=== PATIENT | female | born 1970 | race American Indian/Alaskan Native ===

== ENCOUNTER → 2017-01-26 | Emergency (ER) | payer BC, OTHER ==
[~2017-01-26] VITALS: Ht 152.4 cm; Wt 90.7 kg
[~2017-01-26] MED LIST: ACID CONTROL150 MG PO; AMOXICILLIN500 MG PO; CLIMARA1 EAC1 TD; DIPHENHYDRAMINE25 M1 PO; EPIPEN 2-P0.3 MG/0.3 IM; ESTRADIOL1 MG PO; FLOMAX0.4 MG PO; GABAPENTIN300 MG PO; IBUPROFEN400 MG PO; IBUPROFEN600 MG PO; IBUPROFEN800 MG; NAPROXEN500 MG PO; NORCO 10-325 T1 EACH; NORCO 5-325 TA1 EACH PO; PERCOCET 5-3251 EACH PO; PREDNISONE20 MG PO; PROMETHAZINE HC25 M1 PO; PROMETHEGAN50 MG RC; ZITHROMAX250 MG PO; ZOFRAN ODT8 MG PO
--- OUTSIDE RECORDS SUMMARY | ~2017-01-26 | XMS | Encounter Summary ---
Demographics + + + | Address | [address] | | | [place] [address] | + + + | Home Phone | | + + + | Preferred Language | Unknown | + + + | Marital Status | Single | + + + | Taoism Affiliation | Unknown | + + + | Race | or | + + + | Ethnic Group | Other Race | + + + Author + + + | Author | [facility] | + + + | Organization | [facility] | + + + | Address | Unknown | + + + | Phone | Unavailable | + + + Care Team Providers + +------+ + | Care Staffing Account Manager Name | Role | Phone | + +------+ + PCP | Unavailable | + +------+ + Encounter Details +--------+ + + + + | Date | Type | Department | Care Team | Description | +--------+ + + + + | 11/17/ | Hospital | Dermatopathology | | | | 2016 | Encounter | [address] | | | | | | Mail Code: CH16D | | | | | | [facility] | | | | | | and Healing, 5th | | | | | | [place], [place] | | | | | | [address] | | | | | | [phone] | | | +--------+ + + + + Social History + +-------+ +--------+------+ | [...] on file | | + + + as of this encounter Plan of Treatment Not on fileas of this encounter Results DERM PATHOLOGY (11/17/2016) + + + + | Component | Value | Ref Range | + + + + | DERMATOPATHOLOGY(WET | SOURCE OF SPECIMEN:A Rt. lateral neck, | | | MNT) | excision CLINICAL DESCRIPTION:R/o | | | | atypical junctional melanocytic | | | | proliferation possible for melanoma | | | | insitu?; [id number]. GROSS | | | | DESCRIPTION:Received in formalin is a | | | | specimen labeled Amie Serna:A: | | | | Specimen is labeled "Rt lateral neck" and | | | | consists of an ellipticalexcision of | | | | christian-brown skin, [id number]. The surgical | | | | margin is inked blue;the tissue is serially | | | | sectioned, and entirely submitted in | | | | cassettes A1 | | | | | | | | A3. MICROSCOPIC DESCRIPTION:There | | | | is horizontally arranged fibrosis extending | | | | throughout much of thecentral dermis. | | | | Adjacent to this in many areas, there is | | | | mild papillatedepidermal hyperplasia, with | | | | vacuolar alteration of the basal layer, and | | | | afocally band-like lymphocytic infiltrate | | | | in the upper dermis where thereare numerous | | | | melanophages and mild papillary fibrosis. | | | | Single melanocytesappear to be spaced | | | | relatively sparsely along the epidermal | | | | basal layer, insome areas with a mild | | | | increase (as seen with Melan-A and | | | | SOX-10). 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 NOTE: In this | | | | re-excisional specimen, there is no | | | | evidence of melanoma insitu or a | | | | melanocytic neoplasm, where foci of | | | | lichenoid/interface changeand numerous | | | | melanophages suggest a partially resolved | | | | lichenoiddermatosis, such as ERYTHEMA | | | | DYSCHROMICUM PERSTANS (ASHY DERMATOSIS) | | | | orLICHEN PLANUS PIGMENTOSIS, among other | | | | possibilities. It is difficult toentirely | | | | exclude a broad, inflamed solar lentigo, | | | | which is less likely,although clinical | | | | correlation is recommended.KPW: | | | | dm11/23/16 My electronic signature | | | | indicates that I have personally reviewed | | | | alldiagnostic slides, the gross and/or | | | | microscopic portion of thisreport and | | | | formulated the final diagnosis. | | | | Rendering Diagnostician: Nael Sarkar | | | | YehudaPathologistElectronically Signed | | | | 11/23/2016 5:02PM | | + + + + + + + | Specimen | Performing Laboratory | + + + | | [facility] Mailcode CH5D [address] [facility] | | | [place] [address] | + + + in this encounter Visit Diagnoses + + | Diagnosis | + + | Scar conditions and fibrosis of skin | + + | Scar condition and fibrosis of skin | + + | Other specified dermatitis | + + Admitting Diagnoses + + | Diagnosis | + + | Neoplasm of uncertain behavior of skin | + +
--- OUTSIDE RECORDS SUMMARY | ~2017-01-26 | XMS | Encounter Summary ---
Demographics + + + | Address | [address] | | | [place] [address] | + + + | Home Phone | | + + + | Preferred Language | Unknown | + + + | Marital Status | Single | + + + | Gnosticist Affiliation | Unknown | + + + | Race | or | + + + | Ethnic Group | Other Race | + + + Author + + + | Author | [facility] | + + + | Organization | [facility] | + + + | Address | Unknown | + + + | Phone | Unavailable | + + + Care Team Providers + +------+ + | Care Wire Temperer Name | Role | Phone | + [...] CH16D | | | | | | [facility] | | | | | | and Healing, [address]th | | | | | | [place], [place] | | | | | | [address] | | | | | | [phone] | | | +--------+ + + + [...] for melanoma | | | | insitu?; [id number]. GROSS | | | | DESCRIPTION:Received in formalin is a | | | | specimen labeled Amie Serna:A: | | | | Specimen is labeled "Rt lateral neck" and | | | | consists of an ellipticalexcision of | | | | christian-brown skin, [id number]. The surgical | | | | margin [...] | | [facility] Mailcode CH5D [address] [facility] | | | [place] [address] | + + + in this encounter [...]
--- OUTSIDE RECORDS SUMMARY | ~2017-01-26 | XMS | Clinical Summary ---
Demographics + + + | Address | [address] | | | [place] [address] | + + + | Home Phone | | + + + | Preferred Language | Unknown | + + + | Marital Status | Single | + + + | Latter-Day Affiliation | Unknown | + + + | Race | or | + + + | Ethnic Group | Other Race | + + + Author + + + | Author | [facility]atology [facility] | + + + | Organization | [facility] | + + + | Address | Unknown | + + + | Phone | Unavailable | + + + Care Team Providers + +------+ + | Care Farm General Manager Name | Role | Phone | + +------+ + PP | Unavailable | + +------+ + Source Comments [facility] is fully live on both [facility] and [facility] InPatient.[facility] Allergies Not on File Current Medications Not on file Active Problems Not on file Encounters +--------+ + + + + | Date | Type | Specialty | Care Team | Description | +--------+ + + + + | 11/17/ | Hospital | | | | | 2017 | Encounter | | | | +--------+ + + + + from Last 3 Months Social History + +-------+ +--------+------+ | Tobacco [...] | + + + + + Results DERM PATHOLOGY (11/17/2016) + + + + | Component | Value | Ref Range | + + + + | DERMATOPATHOLOGY(WET | SOURCE OF SPECIMEN:A Rt. lateral neck, | | | MNT) | excision CLINICAL DESCRIPTION:R/o | | | | atypical junctional melanocytic | | | | proliferation possible for melanoma | | | | insitu?; [id number]. GROSS | | | | DESCRIPTION:Received in formalin is a | | | | specimen labeled Amie Serna:A: | | | | Specimen is labeled "Rt lateral neck" and | | | | consists of an ellipticalexcision of | | | | christian-brown skin, [id number]. The surgical | | | | margin [...] Laboratory | + + + | | [facility] [place] CH5D [address] [facility] | | | [place] [address] | + + + from Last 3 Months
== END ==
LOC: ED 21:25
DX: J06.9 Acute upper respiratory infection, unspecified (principal); Z90.710 Acquired absence of both cervix and uterus; Z88.6 Allergy status to analgesic agent; Z88.8 Allergy status to other drugs, medicaments and biological substances; Z79.899 Other long term (current) drug therapy
CPT/HCPCS: 99283

== ENCOUNTER 2017-04-03 09:20 | Emergency (ER) | payer BC, OTHER ==
[~2017-04-03] VITALS: Ht 144.8 cm; Wt 90.7 kg
--- OUTSIDE RECORDS SUMMARY | ~2017-04-03 | XMS | Clinical Summary ---
Demographics + + + | Address | [address] | | | [place] [address] | + + + | Home Phone | | + + + | Preferred Language | Unknown | + + + | Marital Status | Single | + + + | Faith Affiliation | Unknown | + + + | Race | or | + + + | Ethnic Group | Other Race | + + + Author + + + | Author | [facility] | + + + | Organization | [facility] | + + + | Address | Unknown | + + + | Phone | Unavailable | + + + Care Team Providers + +------+ + | Care Ring Packer Name | Role | Phone | + +------+ + PP | Unavailable | + +------+ + Source Comments [facility] is fully live on both [facility] Ambulatory and [facility] InPatient.[facility] Allergies Not on File Current Medications Not [...] | | | | (FLU SHOT) | 7 | | | + + + + + Results Not on filefrom Last 3 Months"
--- OUTSIDE RECORDS SUMMARY | ~2017-04-03 | XMS | Clinical Summary ---
Demographics + + + | Address | [address] | | | [place] [address] | + + + | Home Phone | | + + + | Preferred Language | Unknown | + + + | Marital Status | Single | + + + | Islam Affiliation | Unknown | + + + | Race | or | + + + | Ethnic Group | Other Race | + + + Author + + + | Author | [facility] Dermatology [facility] | + + + | Organization | [facility] Dermatology [facility] | + + + | Address | Unknown | + + + | Phone | Unavailable | + + + Care Team Providers + +------+ + | Care Chief Growth Officer Name | Role | Phone | + +------+ + PP | Unavailable | + +------+ + Source Comments [facility] is fully live on both [facility] Amb[facility] and [facility] InPatient.[facility] Allergies Not on File Current Medications [...]
[2017-04-03] MEDS ORDERED: ZITHROMAX250 MG PO (09:47)
[2017-04-03] MEDS ORDERED: TESSALON PERLE100 MG PO (09:47)
== END 2017-04-03 10:35 | disposition home or self-care (01) ==
LOC: ED 09:20
DX: G43.909 Migraine, unspecified, not intractable, without status migrainosus (principal); J06.9 Acute upper respiratory infection, unspecified; Z88.8 Allergy status to other drugs, medicaments and biological substances; Z88.5 Allergy status to narcotic agent
CPT/HCPCS: 96374; 96375; 99283; J1200; J1885; J2765

== ENCOUNTER 2017-06-21 13:54 | Emergency (ER) | payer BC, OTHER ==
[~2017-06-21] VITALS: Ht 144.8 cm; Wt 90.7 kg
[~2017-06-21 13:54] MED LIST changes: +TESSALON PERLE100 MG PO
--- OUTSIDE RECORDS SUMMARY | 2017-06-21 17:15 | XMS | Clinical Summary ---
Demographics + + + | Address | [address] | | | [place] [address] | + + + | Home Phone | | + + + | Preferred Language | Unknown | + + + | Marital Status | Single | + + + | Episcopal Affiliation | Unknown | + + + | Race | Unknown | + + + | Ethnic Group | Unknown | + + + Author + + + | Author | [facility] | + + + | Organization | [facility] | + + + | Address | Unknown | + + + | Phone | Unavailable | + + + Support + + + + + | Name | Relationship | Address | Phone | + + + + + | [address] | [address] | [place] | | | | | [address] | | + + + + + Care Team Providers + +------+ + | Care Bridal Stylist Sales Consultant Name | Role | Phone | + +------+ + | Sebas Louis MD | PP | | + +------+ + Allergies Not on File Current Medications Not on file Active Problems Not on file Social History + +-------+ +--------+------+ | Tobacco Use | Types | Packs/Day | Years | Date | | | | | Used | | + +-------+ +--------+------+ | Never Assessed | | | | | + +-------+ +--------+------+ + + + | Sex Assigned at | Date Recorded | | | | + + + | Not on file | | + + + Last Filed Vital Signs + + + + | Vital Sign | Reading | Time Taken | + + + + | Blood Pressure | 146/84 | 08/20/2014 3:20 PM PDT | + + + + | Pulse | 66 | 08/20/2014 3:20 PM PDT | + + + + | Temperature | - | - | + + + + | Respiratory Rate | 15 | 08/20/2014 3:20 PM PDT | + + + + | Oxygen Saturation | - | - | + + + + | Inhaled Oxygen | - | - | | Concentration | | | + + + + | Weight | 93.3 kg (205 lb 9.6 | 08/20/2014 3:20 PM PDT | | | oz) | | + + + + | Height | 152.4 cm (5') | 08/20/2014 3:20 PM PDT | + + + + | Body Mass Index | 40.15 | 08/20/2014 3:20 PM PDT | + + + + Plan of Treatment Not on file Results Not on filefrom Last 3 Months Insurance + +--------+ +------+-------+---------+ | Payer | Benefi | Subscriber | Type | Phone | Address | | | t Plan | ID | | | | | | / | | | | | | | Group | | | | | + +--------+ +------+-------+---------+ | COMMERCIAL OTHER | COMMER | xxxxxxxxxxx | | | | | | CIAL | [id number] | | | | | | GENERI | | | | | | | C PLAN | | | | | + +--------+ +------+-------+---------+ | /[employer] | YELLOW | xxxxxxxxx | | | | | PLANS | [place] | | | | | + +--------+ +------+-------+---------+ + +--------+ +--------+ + + | Guarantor Name | Accoun | Relation to | Date | Phone | Billing Address | | | t Type | Patient | of | | | | | | | | | | + +--------+ +--------+ + + | AMIE SERNA | Person | Self [birth year] | Home: | [address] [place] [address] | | | al/[place] | | 1971 | [phone] | [place] | | | [place] | | | [phone] | [phone] | + +--------+ +--------+ + +"
--- OUTSIDE RECORDS SUMMARY | 2017-06-21 17:15 | XMS | Clinical Summary ---
Demographics + + + | Address | [address] | | | [place] [address] | + + + | Home Phone | | + + + | Preferred Language | Unknown | + + + | Marital Status | Single | + + + | Oriental Orthodox Affiliation | Unknown | + + + | Race | or | + + + | Ethnic Group | Other Race | + + + Author + + + | Author | [facility] Dermatology [facility] | + + + | Organization | [facility] | + + + | Address | Unknown | + + + | Phone | Unavailable | + + + Care Team Providers + +------+ + | Care Filling Room Operator Name | Role | Phone | + +------+ + PP | Unavailable | + +------+ + Source Comments [facility] is fully live on both [facility] Ambulatory and [facility] InPatient.[facility] Allergies Not on File Current Medications Not [...] on file | | + + + Plan of Treatment + + + + + | Health Maintenance | Due Date | Last Done | Comments | + + + + + | INFLUENZA VACCINE | | | | | (FLU SHOT) | 8 | | | + + + + + Results Not on filefrom Last 3 Months"
--- OUTSIDE RECORDS SUMMARY | 2017-06-21 17:15 | XMS | Clinical Summary ---
Demographics + + + | Address | [address] | | | [place] [address] | + + + | Home Phone | | + + + | Preferred Language | Unknown | + + + | Marital Status | Unknown | + + + | Sabianism Affiliation | Unknown | + + + | Race | Unknown | + + + | Ethnic Group | Unknown | + + + Author + + + | Author | [facility] | | | and [place] | + + + | Organization | [facility] | | | and [place] | + + + | Address | Unknown | + + + | Phone | Unavailable | + + + Support + + +---------+ + | Name | Relationship | Address | Phone | + + +---------+ + | Boo Christie | ECON | Unknown | | + + +---------+ + Care Team Providers + +------+ + | Care Press Tender Short Goods Name | Role | Phone | + +------+ + PP | Unavailable | + +------+ + Allergies + + + + + + | Active Allergy | Reactions | Severity | Noted | Comments | | | | | Date | | + + + + + + | Tramadol | | | 12/27/19 | | | | | | 12 | | + + + + + + Current Medications + + +-------+---------+------+------+-------+ | Prescription | Sig. | Disp. | Refills | Star | End | Statu | | | | | | t | Date | s | | | | | | Date | | | + + +-------+---------+------+------+-------+ | rizatriptan | Take 5 mg by mouth | | | | | Activ | | (MAXALT) 5 MG tablet | as needed. May | | | | | e | | | repeat in 2 hours if | | | | | | | | needed | | | | | | + + +-------+---------+------+------+-------+ | pyridoxine (B-6) | Take 25 mg by mouth | | | | | Activ | | 25 MG tablet | Daily. | | | | | e | + + +-------+---------+------+------+-------+ | cholecalciferol | Take 1,000 Units by | | | | | Activ | | (VITAMIN D-3) 1,000 | mouth Daily. | | | | | e | | units tablet | | | | | | | + + +-------+---------+------+------+-------+ | folic acid 1 mg | Take 1 mg by mouth | | | | | Activ | | tablet | Daily. | | | | | e | + + +-------+---------+------+------+-------+ | clarithromycin | Take 250 mg by mouth | | | | | Activ | | (BIAXIN) 250 mg | 2 times daily. | | | | | e | | tablet | | | | | | | + + +-------+---------+------+------+-------+ Active Problems Not on file Family History + + +------+ + | Medical History | Relation | Name | Comments | + + +------+ + | High blood pressure | Father | | | + + +------+ + | Diabetes | Mother | | | + + +------+ + | High blood pressure | Mother | | | + + +------+ + | Diabetes | Sister | | | + + +------+ + | High blood pressure | Sister | | | + + +------+ + + +------+--------+ + | Relation | Name | Status | Comments | + +------+--------+ + | Father | | Alive | | + +------+--------+ + | Mother | | Alive | | + +------+--------+ + | Sister | | Alive | | + +------+--------+ + Social History + +-------+ +--------+------+ | Tobacco Use | Types | Packs/Day | Years | Date | | | | | Used | | + +-------+ +--------+------+ | Never Smoker | | | | | + +-------+ +--------+------+ + +---+---+---+ | Smokeless Tobacco: | | | | | Never Used | | | | + +---+---+---+ + + +---------+ + | Alcohol Use | Drinks/We | oz/Week | Comments | | | ek | | | + + +---------+ + | Yes | | | Once a year | + + +---------+ + + + + | Sex Assigned at | Date Recorded | | | | + + + | Not on file | | + + + Last Filed Vital Signs + + + + | Vital Sign | Reading | Time Taken | + + + + | Blood Pressure | 120/80 | 12/27/2011839 PDT | + + + + | Pulse | 76 | 12/27/2011839 PDT | + + + + | Temperature | - | - | + + + + | Respiratory Rate | 16 | 12/27/2011839 PDT | + + + + | Oxygen Saturation | - | - | + + + + | Inhaled Oxygen | - | - | | Concentration | | | + + + + | Weight | 91.7 kg (202 lb 3.2 | 12/27/2011839 PDT | | | oz) | | + + + + | Height | 152.4 cm (5') | 12/27/2011839 PDT | + + + + | Body Mass Index | 39.49 | 12/27/2011839 PDT | + + + + Plan of Treatment + + + + + | Health Maintenance | Due Date | Last Done | Comments | + + + + + | Vaccine: | | | | | Dtap/Tdap/Td (1 - | 8 | | | | Tdap) | | | | + + + + + | CERVICAL CANCER | | | | | SCREENING (PAP EVERY | 0 | | | | 3 YEARS 21-64 ) | | | | + + + + + | Vaccine: Influenza | | | | | (Season Ended) | 8 | | | + + + + + Results Not on filefrom Last 3 Months Insurance + +--------+ +--------+-------+---------+ | Payer | Benefi | Subscriber | Type | Phone | Address | | | t Plan | ID | | | | | | / | | | | | | | Group | | | | | + +--------+ +--------+-------+---------+ | [employer] | [employer] | xxxxxxxxx | Indemn | | | | SERVICE | YELLOW | | ity | | | | | [place] | | | | | + +--------+ +--------+-------+---------+ + +--------+ +--------+ + + | Guarantor Name | Accoun | Relation to | Date | Phone | Billing Address | | | t Type | Patient | of | | | | | | | | | | + +--------+ +--------+ + + | AMIE SERNA | Person | Self | [birth year] | Home: | [address] | | | al/Fam | | 1971 | [phone] | [place] [address] | | | on[place] | | | [phone] | | + +--------+ +--------+ + +"
--- OUTSIDE RECORDS SUMMARY | 2017-06-21 17:15 | XMS | Clinical Summary ---
Demographics + + + | Address | [address] | | | [place] [address] | + + + | Home Phone | | + + + | Preferred Language | Unknown | + + + | Marital Status | Single | + + + | Cheondoism Affiliation | Unknown | + + + | Race | Unknown | + + + | Ethnic Group | Unknown | + + + Author + + + | Author | [facility] | + + + | Organization | [facility] | + + + | Address | Unknown | + + + | Phone | Unavailable | + + + Support + + + + + | Name | Relationship | Address | Phone | + + + + + | [address] | [address] | [place] | | | | | [address] | | + + + + + Care Team Providers + +------+ + | Care Aluminum Pourer Name | Role | Phone | + [...] | | | + +--------+ +------+-------+---------+ | /[facility] | YELLOW | xxxxxxxxx | | [...] | Self | [birth year] | Home: | [address] [place] [address] | | | al/[place] | | 1971 | [phone] | [place] | | | [place] | | | [phone] | [phone] | + +--------+ +--------+ + +"
--- OUTSIDE RECORDS SUMMARY | 2017-06-21 17:15 | XMS | Clinical Summary ---
Demographics + + + | Address | [address] | | | [place] [address] | + + + | Home Phone | | + + + | Preferred Language | Unknown | + + + | Marital Status | Unknown | + + + | Moravian Affiliation | Unknown | + + + | Race | Unknown | + + + | Ethnic Group | Unknown | + + + Author + + + | Author | [facility] | | | and [place] | + + + | Organization | [facility] | | | and [...] Team Providers + +------+ + | Care Retail Wireless Associate Name | Role | Phone | + [...] | | | + +--------+ +--------+-------+---------+ | [facility] | [employer]HS | xxxxxxxxx | Indemn [...] Self | [birth year] | Home: | [address] | | | al/Fam | | 1971 | [phone] | [place] [address] | | | oniel | | | [phone] | | + +--------+ +--------+ + +"
--- OUTSIDE RECORDS SUMMARY | 2017-06-21 17:15 | XMS | Clinical Summary ---
Demographics + + + | Address | [address] | | | [place] [address] | + + + | Home Phone | | + + + | Preferred Language | Unknown | + + + | Marital Status | Single | + + + | Mandaeism Affiliation | Unknown | + + + | Race | or | + + + | Ethnic Group | Other Race | + + + Author + + + | Author | [facility]atology [facility] | + + + | Organization | [facility] | + + + | Address | Unknown | + + + | Phone | Unavailable | + + + Care Team Providers + +------+ + | Care Socket Puller Name | Role | Phone | + +------+ + PP | Unavailable | + +------+ + Source Comments [facility] is fully live on both [facility] Ambulatory and [facility] InPatient.[facility] Allergies Not on File Current Medications Not [...]
[2017-06-21] MEDS ORDERED: NORCO 10-325 T1 EACH PO (17:27)
[2017-06-21] MEDS ORDERED: ONDANSETRON ODT8 MG PO (17:27)
== END 2017-06-21 17:46 | disposition home or self-care (01) ==
LOC: ED 13:54
DX: N13.2 Hydronephrosis with renal and ureteral calculous obstruction (principal); Z88.5 Allergy status to narcotic agent; Z88.8 Allergy status to other drugs, medicaments and biological substances
CPT/HCPCS: 74176; 80053; 81001; 82150; 83690; 85025; 96361; 96374; 96375; 96376; 99284; J1170; J1885; J2405; J7030

== ENCOUNTER 2018-07-02 18:15 | Emergency (ER) | payer BC, OTHER ==
[~2018-07-02] VITALS: Ht 144.8 cm; Wt 98.9 kg
--- OUTSIDE RECORDS SUMMARY | ~2018-07-02 | XMS | Clinical Summary ---
Demographics + + + | Address | [address] | | | [place] [address] | + + + | Home Phone | | + + + | Preferred Language | Unknown | + + + | Marital Status | Unknown | + + + | Druze Affiliation | Unknown | + + + | Race | Unknown | + + + | Ethnic Group | Unknown | + + + Author + + + | Author | [facility] | | | and [place] | + + + | Organization | [facility] | | | and [place] | + + + | Address | Unknown | + + + | Phone | Unavailable | + + + Support + + +---------+ + | Name | Relationship | Address | Phone | + + +---------+ + | Boo Christie | ECON | Unknown | | + + +---------+ + Care Team Providers + +------+ + | Care Internet Webmaster Name | Role | Phone | + +------+ + | Sebas Louis DO | PP | | + +------+ + Allergies + + + + + + | Active Allergy | Reactions | Severity | Noted | Comments | | | | | Date | | + + + + + + | Amitriptyline | Other (See Comments) | | 10/04/19 | Reaction not | | | | | 18 | specified in outside | | | | | | medical records | + + + + + + | Diclofenac | Other (See Comments) | | 10/04/19 | Reaction not | | | | | 18 | specified in outside | | | | | | medical records | | | | | | | + + + + + + | Sumatriptan | Other (See Comments) | | 10/04/19 | Reaction not | | | | | 18 | specified in outside | | | | | | medical records | + + + + + + | Prednisone | Other (See Comments) | | 10/04/19 | Reaction not | | | | | 18 | specified in outside | | | | | | medical records | + + + + + + | Propranolol | Other (See Comments) | | 10/04/19 | Reaction not | | | | | 18 | specified in outside | | | | | | medical records | + + + + + + | Tramadol | Other (See Comments) | | 12/27/19 | Reaction not | | | | | 12 | specified in outside | | | | | | medical records | + + + + + + Medications + + + +---------+------+------+-------+ | Medication | Sig | Dispensed | Refills | Star | End | Statu | | | | | | t | Date | s | | | | | | Date | | | + + + +---------+------+------+-------+ | acetaminophen | Take 325-650 mg by | | 0 | | | Activ | | (TYLENOL) 325 mg | mouth EVERY 4 TO 6 | | | | | e | | tablet | HOURS NEEDED for | | | | | | | | Pain or Fever. | | | | | | + + + +---------+------+------+-------+ | ibuprofen | Take 800 mg by mouth | | 0 | | | Activ | | (ADVIL,MOTRIN) 800 | every 8 hours as | | | | | e | | MG tablet | needed for Pain. | | | | | | | | With meals | | | | | | + + + +---------+------+------+-------+ Active Problems No known active problems Encounters +--------+ + + + + | Date | Type | Specialty | Care Team | Description | +--------+ + + + + | 06/01/ | Imaging | | Provider, | | | 2019 | Exam | | MD Yaw | | +--------+ + + + + from Last 3 Months Family History + + + + + | Medical History | Relation | Name | Comments | + + + + + | High blood pressure | Father | TIM | | | | | D | | | | | [place]ALAKEE | | + + + + + | Diabetes | Mother | CASTRO | | | | | ALEXANDE | | | | | R | | + + + + + | High blood pressure | Mother | CASTRO | | | | | ALEXANDE | | | | | R | | + + + + + | Diabetes | Sister | | | + + + + + | High blood pressure | Sister | | | + + + + + + + +--------+ + | Relation | Name | Status | Comments | + + +--------+ + | Father | TIM D | Alive | | | | [place]EE | | | + + +--------+ + | Mother | CASTRO | Alive | | | | MADDIE | | | + + +--------+ + | Sister | | Alive | | + + +--------+ + Social History + +-------+ +--------+------+ | [...] on file | | + + + + + + + | Job Start Date | Occupation | Industry | + + + + | Not on file | Not on file | Not on file | + + + + + + + + | Travel History | Travel Start | Travel End | + + + + + + | No recent travel history available. | + + Last Filed Vital Signs + + + + | Vital Sign | Reading | Time Taken | + + + + | Blood Pressure | 124/63 | 10/26/20171552 PDT | + + + + | Pulse | 77 | 10/26/20173 PDT | + + + + | Temperature | - | - | + + + + | Respiratory Rate | 20 | 10/26/20171552 PDT | + + + + | Oxygen Saturation | - | - | + + + + | Inhaled Oxygen | - | - | | Concentration | | | + + + + | Weight | 93 kg (205 lb) | 10/11/20171609 PDT | + + + + | Height | 152.4 cm (5') | 10/11/20171609 PDT | + + + + | Body Mass Index | 40.04 | 10/11/20171609 PDT | + + + + Plan of Treatment + + + + + | Health Maintenance | Due Date | Last Done | Comments | + + + + + | Cervical Cancer | | | | | Screening (Pap) | 9 | | | + + + + + | Vaccine: Influenza | | 2009, 11/27/2008 | | | (Season Ended) | 9 | | | + + + + + | Vaccine: | | 07/28/2011, 12/18/2009 | | | Dtap/Tdap/Td (3 - | 2 | | | | Td) | | | | + + + + + Procedures + +--------+ + + + | Procedure Name | Priori | Date/Time | Associated Diagnosis | Comments | | | ty | | | | + +--------+ + + + | US BREAST LIMITED | Routin | 06/01/2018 | | Results for this | | LEFT | e | 11:40 PDT | | procedure are in the | | | | | | results section. | + +--------+ + + + from Last 3 Months Results US Breast Limited Left (06/01/2018 11:40 PDT) + + | Specimen | + + | | + + + + + | Narrative | Performed At | + + + | External films for comparison only | [facility] | | | | | No results will be in the chart. | | + + + + +---------+ + + | Performing | Address | City/State/Zipcode | Phone Number | | Organization | | | | + +---------+ + + | [facility] | | | | + +---------+ + + from Last 3 Months Insurance + +--------+ +--------+-------+---------+--------+ | Payer | Benefi | Subscriber | Effect | Phone | Address | Type | | | t Plan | ID | jeb | | | | | | / | | Dates | | | | | | Group | | | | | | + +--------+ +--------+-------+---------+--------+ | BCBS | BCBS | [id number] | 02/28/19 | | | PPO | | | [place] | | 17-Pre | | | | | | L FEP | | sent | | | | + +--------+ +--------+-------+---------+--------+ | [facility] | IHS | [id number] | 12/19/ | | | Indemn | | SERVICE | YELLOW | | 2012-P | | | ity | | | HAWK | | resent | | | | + +--------+ +--------+-------+---------+--------+ + +--------+ +--------+ + + | Guarantor Name | Accoun | Relation to | Date | Phone | Billing Address | | | t Type | Patient | of | | | | | | | | | | + +--------+ +--------+ + + | Amie Serna | Person | Self | [birth year] | [address] | | [place] | al/[place] | | 1971 | [phone] | [place] [address] | | | oniel | | | 1 (Home) | | + +--------+ +--------+ + + Advance Directives Patient has advance care planning documents on file. For more information, please contact:[facility] [place] [address]"
--- OUTSIDE RECORDS SUMMARY | ~2018-07-02 | XMS | Clinical Summary ---
Demographics + + + | Address | [address] | | | [place] [address] | + + + | Home Phone | | + + + | Preferred Language | Unknown | + + + | Marital Status | Single | + + + | Moravian Affiliation | Unknown | + + + | Race | Unknown | + + + | Ethnic Group | Unknown | + + + Author + + + | Author | [facility] | + + + | Organization | [facility] | + + + | Address | Unknown | + + + | Phone | Unavailable | + + + Support + + + + + | Name | Relationship | Address | Phone | + + + + + | Boo Hall | [address] | [place] | | | | | [address] | | + + + + + Care Team Providers + +------+ + | Care Fighting Vehicle Infantryman Name | Role | Phone | + [...] +------+-------+---------+ | COMMERCIAL OTHER | COMMER | [id number] | | | | | | CIAL | [id number] | | | | | | GENERI | | | | | | | C PLAN | | | | | + +--------+ +------+-------+---------+ | /[facility] | YELLOW | [id number] | | | | | PLANS | [...] | Self | [birth year] | Home: | [address] [place] [address] | | | al/[place] | | 1971 | [phone] | [place] | | | oniel | | | [phone] | [phone] | + +--------+ +--------+ + +"
--- OUTSIDE RECORDS SUMMARY | ~2018-07-02 | XMS | Clinical Summary ---
Demographics + + + | Address | [address] | | | [place] [address] | + + + | Home Phone | | + + + | Preferred Language | Unknown | + + + | Marital Status | Single | + + + | Gnosticism Affiliation | Unknown | + + + | Race | or | + + + | Ethnic Group | Other Race | + + + Author + + + | Author | [facility] | + + + | Organization | [facility] | + + + | Address | Unknown | + + + | Phone | Unavailable | + + + Care Team Providers + +------+ + | Care Real Estate Clerk Name | Role | Phone | + +------+ + PP | Unavailable | + +------+ + Source Comments [facility] is fully live on both [facility] and [facility] InPatient.[facility] Allergies Not on File Current Medications Not [...] | + + + + + | Influenza (Flu) | | | | | vaccination (#1) | 8 | | | + + + + + Results Not on filefrom Last 3 Months Insurance + +--------+ +--------+ + + | Payer | Benefi | Subscriber | Type | Phone | Address | | | t Plan | ID | | | | | | / | | | | | | | Group | | | | | + +--------+ +--------+ + + | [employer] [place] | BLUE | [phone] | PPO | [phone] | [address] [phone] [place] | | | CROSS | | | [phone] | [place] [address] | | | FEDERA | | | | | | | L | | | | | + +--------+ +--------+ + + | [facility] | [place] | [phone] | Agency | | | | SERVICE | | | | | | | | HEALTH | | | | | | | | | | | | | | SERVIC | | | | | | | E | | | | | + +--------+ +--------+ + + + +--------+ +--------+ + + | Guarantor Name | Accoun | Relation to | Date | Phone | Billing Address | | | t Type | Patient | of | | | | | | | | | | + +--------+ +--------+ + + | AMIE SERNA | Person | Self | [birth year] | Home: | [address] | | | al/Fam | | 1971 | [phone] | [place] [address] | | | oniel | | | [phone] | | + +--------+ +--------+ + +"
--- OUTSIDE RECORDS SUMMARY | ~2018-07-02 | XMS | Encounter Summary ---
Demographics + + + | Address | [address] | | | [place] [address] | + + + | Home Phone | | + + + | Preferred Language | Unknown | + + + | Marital Status | Unknown | + + + | Bahai Affiliation | Unknown | + + + | Race | Unknown | + + + | Ethnic Group | Unknown | + + + Author + + + | Author | [facility] | | | and [place] | + + + | Organization | [facility] | | | and [place] | [...] Team Providers + +------+ + | Care Solar Designer Name | Role | Phone | + +------+ + | Sebas Louis DO | PCP | | + +------+ + Encounter Details +--------+ + + + + | Date | Type | Department | Care Team | Description | +--------+ + + + + | 06/01/ | Imaging | [facility] | Lidia, | | | 2019 | Exam | [facility] | MD [address] | | | | | IMAGING | [address] | | | | | [phone] | [place] [address] | | +--------+ + + + + [...] recent travel history available. | + + documented as of this encounter Plan of Treatment Not on filedocumented as of this encounter Procedures + +--------+ + + + | [...] section. | + +--------+ + + + documented in this encounter Results US Breast Limited Left (06/01/2018 11:40 [...] | | | + +---------+ + + documented in this encounter Visit Diagnoses Not on filedocumented in this encounter"
--- OUTSIDE RECORDS SUMMARY | ~2018-07-02 | XMS | Clinical Summary ---
Demographics + + + | Address | [address] | | | [place] [address] | + + + | Home Phone [...] Author + + + | Author | [facility] | + + + | Organization | [facility] | + + + | Address | Unknown | + + + | Phone | Unavailable | + + + Care Team Providers + +------+ + | Care Gang Investigator Name | Role | Phone | + +------+ + PP | Unavailable | + +------+ + Source Comments [facility] is fully live on both [facility] and [facility].On License Of [facility] Allergies Not on File Current Medications Not [...] | BLUE | [phone] | PPO | [phone] | [address] [phone] [place] | | | CROSS | | | [phone] | [place] [address] | | | FEDERA | | | | | | | L | | | | | + +--------+ +--------+ + + | [facility] | [facility] | [phone] | Agency | | [...] Self | [birth year] | Home: | [address] | | | al/Fam | | 1971 | [phone] | [place] [address] | | | oniel | | | [phone] | | + +--------+ +--------+ + +"
--- OUTSIDE RECORDS SUMMARY | ~2018-07-02 | XMS | Encounter Summary ---
Demographics + + + | Address | [address] | | | [place] [address] | + + + | Home Phone | | + + + | Preferred Language | Unknown | + + + | Marital Status | Unknown | + + + | Mormon Affiliation | Unknown | + + + | Race | Unknown | + + + | Ethnic Group | Unknown | + + + Author + + + | Author | [facility] | | | and [place] | + + + | Organization | [facility] | | | and [place] | [...] Team Providers + +------+ + | Care Burner Hand Name | Role | Phone | + [...] | [facility] | [address] | | | | | IMAGING | [address] | | | | | [phone] | [place] [address] | | +--------+ + + + + [...]
--- OUTSIDE RECORDS SUMMARY | ~2018-07-02 | XMS | Clinical Summary ---
Demographics + + + | Address | [address] | | | [place] [address] | + + + | Home Phone | | + + + | Preferred Language | Unknown | + + + | Marital Status | Unknown | + + + | Yarsani Affiliation | Unknown | + + + | Race | Unknown | + + + | Ethnic Group | Unknown | + + + Author + + + | Author | [facility] | | | and [place] | + + + | Organization | [facility] | | | and [place] | [...] Team Providers + +------+ + | Care Farmworker Machine Name | Role | Phone | + [...] +--------+ +--------+-------+---------+--------+ | BCBS | BCBS | [id number] | 02/28/19 | | | PPO | | | [place] | | 17-Pre | | | | | | L FEP | | sent | | | | + +--------+ +--------+-------+---------+--------+ | [facility] | IHS | [id number] | 12/19/ | | | Indemn | [...] | 1971 | [phone] | [place] [address] | | | oniel | | | 1 (Home) | | + +--------+ +--------+ + + Advance Directives Patient has advance care planning documents on file. For more information, please contact:[facility] [place] [place] [address]"
--- OUTSIDE RECORDS SUMMARY | ~2018-07-02 | XMS | Clinical Summary ---
Demographics + + + | Address | [address] | | | [place] [address] | + + + | Home Phone | | + + + | Preferred Language | Unknown | + + + | Marital Status | Single | + + + | Scientology Affiliation | Unknown | + + + | Race | Unknown | + + + | Ethnic Group | Unknown | + + + Author + + + | Author | [facility] | + + + | Organization | [facility] | + + + | Address | Unknown | + + + | Phone | Unavailable | + + + Support + + + + + | Name | Relationship | Address | Phone | + + + + + | Boo Hall | [address] | [place] | | | | | [address] | | + + + + + Care Team Providers + +------+ + | Care Meat And Seafood Manager Name | Role | Phone | [...] +------+-------+---------+ | COMMERCIAL OTHER | COMMER | [id number] | | | | | | CIAL | [id number] | | | | | | GENERI | | | | | | | C PLAN | | | | | + +--------+ +------+-------+---------+ | /[employer] | YELLOW | [id number] | | | | | PLANS | [...] | Self | [birth year] | Home: | [address] [place] [address] | | | al/[place] | | 1971 | [phone] | [place] | | | on[place] | | | [phone] | [phone] | + +--------+ +--------+ + +"
[~2018-07-02 18:15] MED LIST changes: +NORCO 10-325 T1 EACH PO; +ONDANSETRON ODT8 MG PO
--- OUTSIDE RECORDS SUMMARY | 2018-07-02 18:18 | XMS ---
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 Dov VISIT COUNT (12 MO.) 1 ADELINA [place] TOTAL 1 NOTE: Visits indicate total known visits. ED/UCC VISIT TRACKING (12 MO.) 07/02/2018 18:15 ADELINA Vogt [place] TYPE: Emergency COMPLAINT: - ABD PAIN INPATIENT VISIT TRACKING (12 MO.) No inpatient visits to display in this time frame [id number]
[2018-07-02] MEDS ORDERED: DOXYCYCLINE MO100 M1 PO (18:34)
[2018-07-02] MEDS ORDERED: HYDROXYZINE PAM25 MG PO (18:35)
[2018-07-02] MEDS ORDERED: PROTONIX40 MG PO (20:31)
== END 2018-07-02 20:42 | disposition home or self-care (01) ==
LOC: ED 18:15
DX: R10.32 Left lower quadrant pain (principal); G47.00 Insomnia, unspecified; Z90.49 Acquired absence of other specified parts of digestive tract; Z90.710 Acquired absence of both cervix and uterus; Z79.52 Long term (current) use of systemic steroids; Z79.899 Other long term (current) drug therapy
CPT/HCPCS: 74176; 80053; 81001; 83690; 85025; 99284-25

== ENCOUNTER 2018-07-21 05:40 | Day surgery (SDC) | payer BC, OTHER ==
[~2018-07-21] VITALS: Ht 144.8 cm; Wt 98.9 kg
[~2018-07-21 05:40] MED LIST changes: +DOXYCYCLINE MO100 M1 PO; +HYDROXYZINE PAM25 MG PO; +PROTONIX40 MG PO; +VITAMIN D250000 UNIT PO
[2018-07-21] MEDS ORDERED: PERCOCET 7.5-31 EACH PO (08:40)
[2018-07-21] MEDS ORDERED: MOTRIN IB200 MG PO (08:40)
[2018-07-21] MEDS ORDERED: TYLENOL325 MG PO (08:41)
--- NOTE | 2018-07-22 21:40 | OR ---
[facility] [address] [place], [place] [address] Signed DATE OF OPERATION: 07/21/2018 SURGEON: Guerita Alvarado MD PREOPERATIVE DIAGNOSES: 1. Left medial breast mass. 2. Morbid obesity. POSTOPERATIVE DIAGNOSES: 1. Left medial breast mass. 2. Morbid obesity. PROCEDURE PERFORMED: Left breast biopsy (wide excision with parenchymal closure) ANESTHESIA: General LMA; Alison Monreal CRNA, and local 10 mL of 0.25% Marcaine with epinephrine. INDICATION: This 47-year-old morbidly obese woman is a patient of Diana Gregory of [facility]. She has had subjective sense of a mass in the medial aspect of her left breast. Imaging studies including mammogram and ultrasound have failed to identify a discrete mass. She feels that the mass is increased in size. Clinical examination showed some thickened tissue, but no other obvious breast cancer problem. She is admitted at this time to undergo excision of the lesion. She understands the risks of bleeding, infection, need for additional treatment should malignancy be found and other unforeseen complications. She understand that and she wished to proceed. FINDINGS: The tissue was thickened, but there was no discrete mass or dense lesion to suggest breast cancer. Wide and deep excision was undertaken. Parenchymal reapproximation was undertaken for its cosmetic benefit. She tolerated procedure well. DESCRIPTION OF PROCEDURE: The patient was brought to the operating room, given a general LMA type anesthetic. She had been given preoperative antibiotic Ancef. Sequential compression device stockings and heparin subcutaneously administered. The left breast and chest were prepared with a chlorhexidine solution and draped sterilely. A previously marked area of thickening in the medial left breast was once again palpated and showed a thickened area without distinct firm mass. A transverse incision was made directly over this area and flaps Electronically Signed By: GUERITA ALVARADO MD 07/22/18 2140 PATIENT NAME: PRIYA VIVAR OPERATIVE REPORT DATE OF : 66 REPORT #: [id number] PHYSICIAN: GUERITA ALVARADO MD PCP: LUISANA GALVAN REPORT IS CONFIDENTIAL AND NOT TO BE RELEASED WITHOUT AUTHORIZATION [facility] [address] [place], [place] [address] Signed were elevated superior and inferiorly and wide excision undertaken. This was extended deeply as well. The excised specimen was approximately 5 cm in length, 4 cm in width and 4 cm in depth. Hemostasis was assured with electrocautery. Parenchymal reapproximation was undertaken with interrupted 2-0 Vicryl, deep dermal interrupted 2-0 Vicryl given as well. A running subcuticular 3-0 Vicryl was used for the skin. Steri-Strips were applied as was a Mepilex silver sponge dressing and an OpSite. The patient tolerated the procedure well. BLOOD LOSS: Minimal. COMPLICATIONS: None. MD LEELEE Cr/ANNEL /[id number] cc: Diana Gregory MD [facility] Copies: ~ Electronically Signed By: GUERITA ALVARADO MD 07/22/18 2140 PATIENT NAME: PRIYA VIVAR OPERATIVE REPORT DATE OF : 66 REPORT #: [id number] PHYSICIAN: GUERITA ALVARADO MD PCP: LUISANA GALVAN REPORT IS CONFIDENTIAL AND NOT TO BE RELEASED WITHOUT AUTHORIZATION
== END 2018-07-21 12:45 | disposition home or self-care (01) ==
LOC: DS 05:40 → OPS 05:40 → DS 06:45 → OPS 12:45
PROVIDERS: Surgery
PROC: 0HBU0ZX Excision of Left Breast, Open Approach, Diagnostic (ICD-10-PCS; principal; 2018-07-21 06:45)
DX: N60.12 Diffuse cystic mastopathy of left breast (principal); E66.01 Morbid (severe) obesity due to excess calories; G43.909 Migraine, unspecified, not intractable, without status migrainosus; G47.30 Sleep apnea, unspecified; Z90.711 Acquired absence of uterus with remaining cervical stump; Z90.49 Acquired absence of other specified parts of digestive tract; Z68.42 Body mass index [BMI] 45.0-49.9, adult
CPT/HCPCS: 00404; J0690; J1200; J1885; J2405; J2704; J3010; J7120